=== PATIENT | female | born 1975 | race Caucasian/White ===

== ENCOUNTER 2017-01-30 02:43 | Emergency (ER) | payer SELFPAY ==
[~2017-01-30] VITALS: Ht 154.9 cm; Wt 72.6 kg
[2017-01-30 02:49] VITALS: BP 136/71
--- NOTE | 2017-01-30 03:02 | PHYS DOC ---
Past Medical History Past Medical History: No Pertinent History, Other Additional Past Medical Histor: tubal Past Surgical History: Other Additional Past Surgical Histo: Left salpingoectomy Alcohol Use: None Drug Use: None Adult General Chief Complaint Chief Complaint: FACE PAIN HPI HPI Patient is a 41 year old F who presents with jaw pain after her dog jumped on her before going to bed. Patient states that her dog jumped on her injuring her jaw and complains of severe pain to her right lower jaw. Patient is able to open her mouth. Patient sustained no other injuries. Patient had no loss of consciousness. Patient stated she ride to go to sleep the pain was too intense therefore came the emergency room. Pertinent exam findings: Tenderness palpation to the right lower jaw, no deformity noted, patient able to open her mouth, no intraoral lacerations noted, teeth are intact, patient able to bite down on tongue depressor ED course: Patient was seen and examined, CT scan of the head and maxillofacial were ordered without contrast and 60 mg of IM Toradol was given 0456: Patient was reevaluated and updated on the CT results. Patient is feeling much better and is ready go home. Recommended patient follow PCP in one to 2 days. Pertinent results: CT scan of the head and face shows no acute fracture or intracranial process MDM: After reviewing the chart, CC/HPI/PMH, physical exam, [radiological results], I do not believe the patient sustained a significant facial fracture or intracranial injury warranting further workup and/or admission at this time. I believe the patient is stable for discharge. Discussed [id number] pain management with the patient. Recommended patient follow PCP in one to 2 days. Additional verbal discharge instructions were provided to the patient and that if symptoms get worse or any new symptoms arise that are worrisome to the patient she is to return to the emergency room immediately Review of Systems Review of Systems GEN: Denies fevers, chills, sweats HEENT: Right jaw pain CV: Denies chest pain RESP: Denies shortness of air, cough GI: Denies n/v/d NEURO: Denies confusion, dizziness MSK: Denies weakness, joint pain/swelling Current Medications Current Medications Current Medications Medications (Trade) Dose Ordered Sig/Marilou Start Time Stop Time Status Last Admin Dose Admin Ketorolac Tromethamine (Toradol Im) 60 mg 1X ONCE 01/30/17 03:30 01/30/17 03:31 DC 01/30/17 03:09 60 MG Allergies Allergies Allergies Coded Allergies Type Severity Reaction Last Updated Verified No Known Drug Allergies 10/05/15 No Physical Exam Physical Exam GEN.: No apparent distress. Alert and oriented. HEENT: Head is normocephalic, atraumatic, Tenderness palpation to the right lower jaw, no deformity noted, patient able to open her mouth, no intraoral lacerations noted, teeth are intact, patient able to bite down on tongue depressor NECK: Supple. LUNGS: CTAB. HEART: RRR, S1, S2 present. Peripheral pulses intact ABDOMEN: Soft, nontender. Positive bowel sounds. EXTREMITIES: Without any cyanosis. NEUROLOGIC: Normal speech, normal tone PSYCHIATRIC: Normal affect, normal mood. SKIN: No ulcerations Current Patient Data Vital Signs Vital Signs Date Time Temp Pulse Resp B/P (MAP) Pulse Ox O2 Delivery O2 Flow Rate FiO2 01/30/17 02:49 97.9 78 16 136/71 (92) 94 Room Air 97.9 EKG EKG [] Radiology/Procedures Radiology/Procedures CT scan of the head and face without contrast : IMPRESSION: 1. No acute intracranial findings 2. No acute fracture of the facial bones. [] Course & Med Decision Making Course & Med Decision Making Pertinent Labs and Imaging studies reviewed. (See chart for details) [] Dragon Disclaimer Dragon Disclaimer This electronic medical record was generated, in whole or in part, using a voice recognition dictation system. Departure Departure Impression: Primary Impression: Facial contusion Disposition: 01 HOME, SELF-CARE Condition: IMPROVED Referrals: NO PCP (PCP) Patient Instructions: Facial or Scalp Contusion Additional Instructions: Please follow up with her family doctor next one to 2 days and return if symptoms increase ANGE SETHI DO Jan 30, 2017 03:02
[2017-01-30] MEDS ORDERED: KETOROLAC TROMETHAMINE 60 MG/2 ML INJ. IM ONE (03:30)
--- NOTE | 2017-01-30 04:44 | RAD ---
Examination: CT head and neck of the facial bones without contrast HISTORY: History of injury to the jaw when dog jumped on her TECHNIQUE: Axial CT images of the head was performed without contrast. Axial CT images of the face were performed without contrast. Coronal and sagittal reformatted performed Exposure: One or more of the following individualized dose reduction techniques were utilized for this examination: 1. Automated exposure control 2. Adjustment of the mA and/or kV according to patient size 3. Use of iterative reconstruction technique FINDINGS: There is no evidence of midline shift. There is no acute intracranial or extra-axial fluid collection identified. The casanova-white matter transition is maintained. The visualized lateral ventricles, third ventricle, fourth ventricles are appropriate for age. The basal cisterns aren't effaced. The visualized paranasal sinuses, mastoid bases. The bilateral orbital globes appear intact. Fat is maintained. The bilateral orbital nolen appear intact. The temporomandibular joints are intact The visualized pterygoid plates, zygomatic arches are intact IMPRESSION: 1. No acute intracranial findings 2. No acute fracture of the facial bones. Electronically signed by: Ambrose Nuñez MD (01/30/2017 4:41 AM)
== END 2017-01-30 05:08 | disposition home or self-care (01) ==
LOC: ER 02:43
DX: S00.83XA Contusion of other part of head, initial encounter (principal); X58.XXXA Exposure to other specified factors, initial encounter; Y93.89 Activity, other specified; Y99.8 Other external cause status; Y92.89 Other specified places as the place of occurrence of the external cause
CPT/HCPCS: 70450; 70486; 96372; 99284; J1885

== ENCOUNTER → 2019-08-17 | Outpatient (CLI) | payer OTHER ==
[~2019-08-17] MED LIST: HYDR25TA PO; OMEP40CA45 PO
[2019-08-17 13:23] LABS: BASO % 1 % (0-3); EOS # 0.1 x10^3/uL (0.0-0.7); EOS % 1 % (0-3); HEMATOCRIT 40.4 % (36.0-47.0); HEMOGLOBIN 13.5 g/dL (12.0-15.5); LYMPH # 1.9 x10^3/uL (1.0-4.8); LYMPH % 25 % (24-48); MEAN CORPUSCULAR HEMOGLOBIN 29 pg (25-35); MEAN CORPUSCULAR HGB CONC 33 g/dL (31-37); MEAN CORPUSCULAR VOLUME 87 fL (79-100); MONO # 0.5 x10^3/uL (0.0-1.1); MONO % 7 % (0-9); NEUT # 5.2 x10^3/uL (1.8-7.7); NEUT % 67 % (31-73); PLATELET COUNT 286 x10^3/uL (140-400); RED BLOOD COUNT 4.66 x10^6/uL (3.50-5.40); WHITE BLOOD COUNT 7.8 x10^3/uL (4.0-11.0)
== END | disposition home or self-care (01) ==
LOC: SURGPAT 12:34
PROVIDERS: ATTEND Obstetrics & Gynecology
DX: Z01.818 Encounter for other preprocedural examination (principal)
CPT/HCPCS: 36415; 85025

== ENCOUNTER 2019-08-23 05:44 | Day surgery (SDC) | payer OTHER ==
[2019-08-23] MEDS ORDERED: LIDOCAINE 1% PF 2 ML VIAL. ID PRN (07:00)
[2019-08-23] MEDS ORDERED: HYDROmorphone 2 MG/ML VIAL IV PRN (07:00)
[2019-08-23] MEDS ORDERED: ONDANSETRON PF 4 MG/2 ML VIAL. IV PRN (07:00)
[2019-08-23] MEDS ORDERED: PROCHLORPERAZINE 10 MG/2 ML VIAL. IV PRN (07:00)
[2019-08-23] MEDS ORDERED: ceFAZolin 2GM PREMIX 2 GM/50 ML BAG IV ONE (07:00)
[2019-08-23] MEDS ORDERED: MORPHINE SULFATE 2 MG/ML VIAL. IV PRN (07:00)
[2019-08-23] MEDS ORDERED: IV RINGERS,LACTATED 1000ML 1,000 ML IV SCH (07:00)
[2019-08-23] MEDS ORDERED: fentaNYL PF VIAL 100 MCG/2 ML VIAL IV PRN ×2 (07:00)
[2019-08-23 07:04] LABS: CALCIUM 9.1 mg/dL (8.5-10.1); CREATININE 0.7 mg/dL (0.6-1.0); GFR 91.3; POTASSIUM 3.9 mmol/L (3.5-5.1)
[2019-08-23] MEDS ORDERED: INDIGOTINDISULFONATE SODIUM 40 MG/5 ML AMPUL. ONE (07:06)
[2019-08-23] MEDS ORDERED: ESTROGENS, CONJ VAGINAL CREAM 30GM TUBE. ONE (07:06)
[2019-08-23 07:09] LABS: ALBUMIN 3.5 g/dL (3.4-5.0); ALBUMIN/GLOBULIN RATIO 0.9 (1.0-1.7); TOTAL BILIRUBIN 0.6 mg/dL (0.2-1.0); TOTAL PROTEIN 7.2 g/dL (6.4-8.2)
[2019-08-23] MEDS ORDERED: FAMOTIDINE 20 MG/2 ML VIAL ONE (07:13)
[2019-08-23] MEDS ORDERED: ONDANSETRON PF 4 MG/2 ML VIAL. ONE (07:13)
[2019-08-23] MEDS ORDERED: MIDAZOLAM HCL/PF 2 MG/2 ML VIAL. ONE (07:13)
[2019-08-23] MEDS ORDERED: fentaNYL PF VIAL 100 MCG/2 ML VIAL ONE (07:13)
[2019-08-23] MEDS ORDERED: PROPOFOL 20 ML IV ONE (07:13)
[2019-08-23] MEDS ORDERED: LIDOCAINE 2% PF 5 ML VIAL. ONE (07:13)
[2019-08-23] MEDS ORDERED: ROCURONIUM 50 MG/5 ML VIAL. ONE (07:13)
[2019-08-23] MEDS ORDERED: DEXAMETHASONE SOD PHOS 4 MG/ML VIAL ONE (07:13)
[2019-08-23] MEDS ORDERED: KETOROLAC 30 MG/ML VIAL. ONE (07:17)
[2019-08-23] MEDS ORDERED: diphenhydrAMINE 50 MG/ML VIAL ONE (07:18)
[2019-08-23] MEDS ORDERED: BUPIVACAINE-EPI 0.25%-1:200000 MPF 30 ML VIAL. INJ ONE (08:00)
[2019-08-23] MEDS ORDERED: GLYCOPYRROLATE 1 MG/5 ML VIAL. ONE (08:17)
[2019-08-23] MEDS ORDERED: NEOSTIGMINE METHYLSULFATE 5 MG/5 ML SYRINGE. ONE (08:17)
[2019-08-23] MEDS ORDERED: SEVOFLURANE 31 TO 60 MINUTES. IH ONE (08:26)
--- NOTE | 2019-08-23 08:47 | PDOC ---
BRIEF OPERATIVE NOTE Date: Aug 23, 2019 Pre-Op Diagnosis pelvic pain, fibroid uterus Post-Op Diagnosis large left pelvic wall mass at least 9 or more cm; very obscured anatomy an no way to visualize the ureter; without urology here at this hospital did a diagnostic scope, went out and spoke with family and will refer to for surgery where they have another surgeon to assist in surgery if needed with advanced accounts payable representative surgery Procedure Performed Diagnostic laparoscopy Surgeon Dr. Diana Douglas [employer] Operator HELEN Mills Anesthesiologist Dr. Craven Anesthesia Type: General Blood Loss 5cc IV Fluid 1L Urine Output 50cc clear via mix Specimens Obtained none Findings enlarged fibroid uterus, normal right tube and ovary; adhesions to left ovary but main thing was this very large left pelvic sidewall mass; looks like a 2nd uterus from the top (likely fibroid) but buldges out from left pelvic sidewall and distorts the anatomy badly; cannot identify the ureter easily and no urologist here so went and showed pictures to the family and spoke with them and they are ok just doing diagnostic scope and sending her to to get surgery with an advanced pelivc surgeon and where urology is available if needed Complications none Operative Note [id number] DIANA DOUGLAS MD Aug 23, 2019 08:47
[2019-08-23] MEDS ORDERED: CALCIUM CARBONATE 500 MG TAB.CHEW PO PRN (09:00)
[2019-08-23] MEDS ORDERED: NALOXONE 0.4 MG/ML VIAL. IV PRN (09:00)
[2019-08-23] MEDS ORDERED: HYDROcodone/APAP 5/325MG 1 TAB TABLET PO PRN (09:00)
[2019-08-23] MEDS ORDERED: MAG HYDROX/ALUMINUM HYD/SIMETH 30 ML ORAL.SUSP PO PRN (09:00)
[2019-08-23] MEDS ORDERED: diphenhydrAMINE HCL 25 MG CAPSULE PO PRN (09:00)
[2019-08-23] MEDS ORDERED: hydrOXYzine 25 MG TABLET PO SCH (09:00)
[2019-08-23] MEDS ORDERED: SIMETHICONE 80 MG TAB.CHEW PO PRN (09:00)
[2019-08-23] MEDS ORDERED: diphenhydrAMINE 50 MG/ML VIAL IV PRN (09:00)
[2019-08-23] MEDS ORDERED: 0.9 % SODIUM CHLORIDE 10 ML DISP.SYRIN. IV PRN (09:00)
[2019-08-23 10:22] VITALS: BP 106/62
--- NOTE | 2019-08-23 11:02 | OP ---
DATE OF SURGERY: 08/23/2019 PREOPERATIVE DIAGNOSES: Pelvic pain and a known fibroid uterus with a history of a ruptured left ectopic. POSTOPERATIVE DIAGNOSES: Pelvic pain and a known fibroid uterus with a history of a ruptured left ectopic, but a very large, at least 9-10 cm left pelvic sidewall mass, it is probably a fibroid as at the top, it almost looks like there is a second uterus. FINDINGS: This mass is much larger than the uterus itself, but it is the posterior and side wall part that is worrisome as I cannot safely and easily identify the ureter and great vessels. So once this was all seen, she had a normal right tube and ovary, normal right upper quadrant. No significant adhesive disease in the abdomen. Her left ovary was mildly adhesed to the bowel from probably her prior ruptured ectopic on that side, but with this large pelvic sidewall mass and no urologist available to help either here, there Urology at [facility] right now. I went on and spoke with the family and showed them pictures and gave them options of me trying to open and do this versus just doing the diagnostic scope and sending her to somewhere like that has advanced pelvic surgery and Urology available and this is what they chose. So I went back in and all the port sites were removed under direct visualization. They were hemostatic and she was awakened from anesthesia at that point. So there were no complications at all. ESTIMATED BLOOD LOSS: 5 mL. IV FLUIDS: 1 liter of crystalloid. URINE OUTPUT: 50 mL clear via Crenshaw catheter. SPECIMENS: No specimens. Crenshaw will come out. She did have it in during the case, but it will come out prior to recovery room. DESCRIPTION OF PROCEDURE: This patient was taken to the operating room where general anesthesia was placed. The patient was placed in dorsal lithotomy position in [facility]. The patient's abdomen and vagina both were prepped and draped in the normal sterile fashion and a Crenshaw catheter had been inserted under sterile technique. Upon my arrival, a timeout was performed. Once everyone agreed and she had received her IV antibiotics, a bivalve speculum was placed in the patient's vagina. A single-tooth tenaculum was used to grasp the anterior lip of the cervix. A 10 mL of 0.25% Marcaine with epinephrine was used to circumferentially inject around the cervix for both hemodissection and hemostatic purposes later. The Valtchev uterine manipulator was placed through the endocervical os, locked on the single tooth tenaculum and the bivalve speculum was then removed. Top gloves were discarded and changed. Attention was then turned to the abdomen where a small supraumbilical skin incision was made with the scalpel. It was injected first, then a small incision was made and the 5 mm Visiport was placed under direct visualization atraumatically. Direct abdominal placement was confirmed via the laparoscope and opening patient pressure was 8 mmHg. Carbon dioxide gas was used to then appropriately insufflate the abdominal cavity to maintain a pressure of 15 mmHg. The patient was placed in Trendelenburg position. Right and left lower quadrant ports were placed, first after transilluminating the abdominal wall, finding an area clear of any vasculature, injecting the local, making a small incision and placing the 5 mm disposable trocar in under direct visualization. The 4-5 mL of air was used in the trocar cuff of these. A camera was then moved to a lateral port to look at the umbilical port, it too was clear and it was insufflated with the air. Upon initial inspection, prior to looking at the pelvis, the right upper quadrant looked okay. The bowel like omental fat pad looked grossly normal. When we started moving it away, there were no adhesions to the anterior part of the uterus. It looked like it was almost 2 huge uteruses, but the left part was actually bigger than the uterus itself. I was able to lift the uterus, posterior cul-de-sac was actually clear in the midline and the right tube and ovary were normal; however, on the left side, there was a left pelvic mass that was bulging out from the left pelvic sidewall that was solid. So it could just be another fibroid, but it was solid in nature and I could not easily or readily identify the left ureter or great vessels with this solid left pelvic sidewall mass. At this point, without it being manipulated without being able to identify the ureter, knowing that it literally under the peritoneum stalk and almost looking like it is arising from the left pelvic sidewall. I knew there was no way to complete this laparoscopically. I could open her and try to open this up; however, if I needed help with the urologist, there is no Urology here available at [facility]. So at this point, prior to going any further, I took pictures of everything, went out and spoke with the family, showed them pictures, shared with them the news about this, the discovery about this left pelvic sidewall mass that was larger than the uterus itself and the fact that we either have to open and try this, but that I did not have the help here that I would really like or possibly need and the other option would be to just do the diagnostic scope closer up safely and send her somewhere with the knowledge of what this is, where they could help her, like at with advanced pelvic surgery and urology and this is what they chose. So when I went back in, I took the bottom instruments out, Celosia looked at the right and left lower quadrant ports deflated the balloons. They were taken out under direct visualization. They were hemostatic. Gas was released from the umbilical port. That trocar cuff balloon was taken down as well and it was removed. All three port sites were closed with 4-0 nylon at the skin. At the bottom, I did use a speculum to look, there was no significant bleeding from the tenaculum sites either vaginally and the patient was awakened from anesthesia and brought to recovery room in stable condition. RAPHAEL PIERRE MD DR: KENNY/mami JOB#: [id number] / [id number]
[2019-08-23] MEDS ORDERED: PANTOPRAZOLE 40 MG TABLET.DR. PO SCH (11:30)
== END 2019-08-23 10:28 | disposition home or self-care (01) ==
LOC: SURG 05:44
PROVIDERS: ATTEND Obstetrics & Gynecology
DX: D25.2 Subserosal leiomyoma of uterus (principal); F41.9 Anxiety disorder, unspecified; K21.9 Gastro-esophageal reflux disease without esophagitis; F15.90 Other stimulant use, unspecified, uncomplicated; Z87.891 Personal history of nicotine dependence; Z72.89 Other problems related to lifestyle
CPT/HCPCS: 36415; 49320; 80053; 81025; 86850; 86900; 86901; A7015; J1100; J1200; J1885; J2001; J2250; J2405; J2704; J2710; J3010; J3490; J7030; J0696